=== PATIENT | female | born 2000 | race Caucasian/White ===

== ENCOUNTER 2021-08-10 13:02 | Outpatient (CLI) | payer BC, MEDICAID, SELFPAY ==
[2021-08-10 14:17] LABS: HCG Qualitative Urine. Negative (Negative)
== END 2021-08-10 13:03 | disposition home or self-care (01) ==
LOC: LAB 13:09
PROVIDERS: Family Provider Nurse Practitioner Family; Visit Provider Registered Nurse
DX: N39.0 Urinary tract infection, site not specified (principal)
CPT/HCPCS: 81025

== ENCOUNTER 2022-06-05 11:31 | Outpatient (CLI) | payer BC, SELFPAY ==
[2022-06-05 12:23] LABS: Add Urine Microscopic? NO; Charge for UA Resulting for Rev
[2022-06-05 13:00] LABS: Urine Appearance Clear (CLEAR); Urine Color Straw (Yellow)
[2022-06-05 13:01] LABS: Bilirubin Urine Neg (Negative); Blood Urine Neg (Negative); Glucose Urine UA Norm (Normal); Ketones Urine Negative (Negative); Leukocyte Esterase Urine Negative (Negative); Nitrate Urine Negative (Negative); Protein Urine Neg (Negative); Urobilinogen Urine Norm (Negative); pH Urine 7 (5-7)
== END 2022-06-05 11:32 | disposition home or self-care (01) ==
PROVIDERS: PCP Registered Nurse; Visit Provider Registered Nurse
DX: R82.998 Other abnormal findings in urine (principal)
CPT/HCPCS: 81003; 87086